=== PATIENT | female | born 1955 | race Caucasian/White ===

== ENCOUNTER 2020-11-08 14:39 | Emergency (ER) | payer SELFPAY ==
[~2020-11-08] VITALS: Ht 157.5 cm; Wt 81.7 kg
--- NOTE | 2020-11-08 15:13 | PHYS DOC ---
Past History Past Medical History: Diabetes, Hypertension Past Surgical History: No Surgical History Alcohol Use: None Adult General Chief Complaint Chief Complaint: SORE THROAT HPI HPI Patient is a 65yo F presenting for sore throat. Onset was ~2-3 days ago. Cites her significant other had similar symptoms that were sam-limiting but hers has not improved. Reports dry scratchy feeling in posterior throat and pain when swallowing. She has had no fever, been tolerating her secretions. Review of Systems Review of Systems Fourteen body systems of review of systems have been reviewed. See HPI for pertinent positives and negative responses, other coy all other systems are negative, non-pertinent or non-contributory Allergies Allergies Allergies Coded Allergies Type Severity Reaction Last Updated Verified No Known Drug Allergies 11/08/20 No Physical Exam Physical Exam General: Appears well, non toxic, and comfortable Skin: Warm, dry. Normal for ethnicity. HEENT: Atraumatic. PERRLA. Rhinorrhea and congestion. Nasal turbinates boggy b/l. Moist mucous membranes. Uvula midline. Maintaining secretions. No phonation changes. Engorged tonsils bilaterally 4+ without obvious exudate or fluctuance concerning for [employer] Neck: Trachea midline. Normal ROM. No stridor. Anterior cervical lymphadenopathy Lt>Rt with firmness appreciated under left submandibular area Respiratory: Normal WOB. CTAB w/o w/r/r. No tachypnea. Cardiovascular: Regular rate and rhythm. Normal peripheral perfusion. Abdomen: Soft. Non tender. No distension. Back: Normal ROM. Musculoskeletal: No swelling or deformity. Neuro: Alert and oriented x 4. MAEE. Lymph: No cervical LAD. Psych: Anxious affect and mood. Current Patient Data Vital Signs Vital Signs Date Time Temp Pulse Resp B/P (MAP) Pulse Ox O2 Delivery O2 Flow Rate FiO2 11/08/20 14:52 98.2 95 18 152/78 (102) 96 Room Air Lab Results Current Medications Medications (Trade) Dose Ordered Sig/Sujata Route PRN Reason Start Time Stop Time Status Last Admin Dose Admin Iohexol (Omnipaque 300 Mg/ml) 75 ml 1X ONCE IV 11/08/20 15:15 11/08/20 15:16 DC 11/08/20 15:23 Clindamycin HCl (Cleocin) 450 mg 1X ONCE PO 11/08/20 15:30 11/08/20 15:31 DC 11/08/20 15:31 Dexamethasone Sodium Phosphate (Decadron) 10 mg 1X ONCE PO 11/08/20 15:30 11/08/20 15:31 DC 11/08/20 15:31 EKG EKG [] Radiology/Procedures Radiology/Procedures Examination: CT soft tissue neck with IV contrast HISTORY: History of left neck swelling, swollen tonsils COMPARISON: None available Technique: Axial CT images of the soft tissue neck were performed with IV contrast. Coronal and sagittal reformats performed. Exposure: One or more of the following individualized dose reduction techniques were utilized for this examination: 1. Automated exposure control 2. Adjustment of the mA and/or kV according to patient size 3. Use of iterative reconstruction technique FINDINGS: The visualized intracranial portion grossly appears unremarkable. The visualized parotid glands, masticators spaces grossly appears unremarkable. The visualized thyroid gland grossly appears unremarkable. The visualized vallecula grossly appears unremarkable. Moderate enlarged bilateral tonsils causing moderate to narrowing of the upper airway, best visualized on series 3 image 24. Few enlarged bilateral cervical lymph nodes identified with the largest measuring 1.6 cm on the left cervical level II region. Partially visualized small mediastinal lymph nodes. Mild apical lung emphysematous changes. Minimal apical lung atelectasis. Mild degenerative changes cervical spine. IMPRESSION: 1. Moderate enlarged bilateral tonsils causing moderate to narrowing of the upper airway probably tonsillitis. Correlate clinically. 2. Few enlarged bilateral cervical lymph nodes identified with the largest measuring 1.6 cm on the left cervical level II region, likely reactive lymphadenopathy. Electronically signed by: Hunter Calderón MD (11/08/2020 3:39 PM) [id number] Heart Score C/O Chest Pain: No HEART Score for Chest Pain: HEART Score for Chest Pain Response (Comments) Value History Slighlty/Non-Suspicious 0 ECG Normal 0 Age > 65 2 Risk Factors >3 Risk Factors or Hx CAD 2 Troponin < Normal Limit 0 Total 4 Risk Factors: Risk Factors: DM, Current or recent (<one month) smoker, HTN, HLP, family history of CAD, obesity. Risk Scores: Risk Factors: DM, Current or recent (<one month) smoker, HTN, HLP, family history of CAD, obesity. Course & Med Decision Making Course & Med Decision Making Hemodynamically stable patient with HPI and PE concerning for tonsillitis vs [employer] vs other oropharyngeal infection. CT consistent with tonsillitis without other concerning abnormality PO Dex and Clinda started. Patient has good access to PCP and can be seen by end of week for repeat evaluation. I discussed this might be an acute presentation of something such as FE[employer]ER so close follow-up is vital Strict return precautions discussed with good understanding, all questions addressed prior to departure with RX Clinda Candy Disclaimer Candy Disclaimer This electronic medical record was generated, in whole or in part, using a voice recognition dictation system. Departure Departure: Impression: Primary Impression: Acute tonsillitis Disposition: HOME / SELF CARE / HOMELESS Condition: STABLE Referrals: HERIBERTO MEDINA (PCP) Patient Instructions: Sore Throat Additional Instructions: Your child was seen for a sore throat. There is concern for active infection and so, you were given a dose of oral steroids which should last for 3 days and also given antibiotics while in ER. You were also given a prescription for set antibiotics to take, please take these as scheduled to completion. Take ibuprofen (Motrin/Advil) every 6 hours as needed for pain/fever. Push fluid intake. See your doctor if your symptoms worsen or fail to improve in the next 3 to 4 days. Return to the Urgent Care or Emergency Room if you have worsening symptoms, difficulty swallowing, signs of dehydration (poor urine output, dry mouth), a fever > 102, or if you have any other concerns Scripts Clindamycin Hcl (CLINDAMYCIN HCL) 300 Mg Capsule 1 CAP PO TID for TONSILLITIS for 10 Days, #30 CAP Prov: LINO ROBLEDO DO 11/08/20 LINO ROBLEDO DO Nov 08, 2020 15:13
[2020-11-08] MEDS ORDERED: IOHEXOL 300 MG/ML 75 ML VIAL. IV ONE (15:15)
[2020-11-08] MEDS ORDERED: CLINDAMYCIN HCL 150 MG CAPSULE PO ONE (15:30)
[2020-11-08] MEDS ORDERED: DEXAMETHASONE SOD PHOS 10 MG/ML VIAL. PO ONE (15:30)
--- NOTE | 2020-11-08 15:41 | RAD ---
Examination: CT soft tissue neck with IV contrast HISTORY: History of left neck swelling, swollen tonsils COMPARISON: None available Technique: Axial CT images of the soft tissue neck were performed with IV contrast. Coronal and sagit rachel reformats performed. Exposure: One or more of the following individualized dose reduction techniques were utilized for th is examination: 1. Automated exposure control 2. Adjustment of the mA and/or kV according to patien t size 3. Use of iterative reconstruction technique FINDINGS: The visualized intracranial portion grossly appears unremarkable. The visualized parotid glands, mast icators spaces grossly appears unremarkable. The visualized thyroid gland grossly appears unremarkabl e. The visualized vallecula grossly appears unremarkable. Moderate enlarged bilateral tonsils causing moderate to narrowing of the upper airway, best visualized on series 3 image 24. Few enlarged bilate ral cervical lymph nodes identified with the largest measuring 1.6 cm on the left cervical level II r egion. Partially visualized small mediastinal lymph nodes. Mild apical lung emphysematous changes. Mi nimal apical lung atelectasis. Mild degenerative changes cervical spine. IMPRESSION: 1. Moderate enlarged bilateral tonsils causing moderate to narrowing of the upper airway probably to nsillitis. Correlate clinically. 2. Few enlarged bilateral cervical lymph nodes identified with the largest measuring 1.6 cm on the l eft cervical level II region, likely reactive lymphadenopathy. Electronically signed by: Hunter Calderón MD (11/08/2020 3:39 PM) [id number]
[2020-11-08] MEDS ORDERED: CLIN300C9 PO (16:00)
[2020-11-08 16:05] VITALS: BP 147/71
== END 2020-11-08 16:13 | disposition home or self-care (01) ==
LOC: ER 14:39
DX: J02.9 Acute pharyngitis, unspecified (principal); E11.9 Type 2 diabetes mellitus without complications; I10 Essential (primary) hypertension
CPT/HCPCS: 70491; 99285; J1100; Q9967; 99284-25

== ENCOUNTER → 2021-10-07 | Outpatient (CLI) | payer OTHER ==
[~2021-10-07] MED LIST: CLIN-95 PO
--- NOTE | 2021-10-07 14:09 | RAD ---
EXAM: XR LUMBAR SPINE 2-3V, XR CHEST 2V 10/07/2021 9:35 AM CLINICAL INDICATION: Shortness of air and chronic lower back pain COMPARISON: None TECHNIQUE: PA and lateral views of the chest. AP, lateral, and coned-down lateral views of the lumba r spine FINDINGS: Chest: The heart is normal in size. Lungs are well-expanded. There are a few bilateral calcified gran ulomas. No consolidation, pleural effusion, or pneumothorax. No acute osseous abnormality. Lumbar spine: There are 5 nonrib-bearing lumbar vertebral bodies. No acute fracture. Alignment is nor mal. There is mild disc space narrowing with endplate sclerosis at L2-L3. Mild disc space narrowing a t L1-L2. Tiny anterior osteophytes at multiple levels. No significant facet arthrosis. IMPRESSION: 1. No acute cardiopulmonary abnormality. 2. Mild lumbar degenerative disc disease, greatest at L2-L3. Electronically signed by: Kierra Maharaj MD (10/07/2021 2:07 PM) [id number]
== END ==
LOC: RAD 09:07
PROVIDERS: ATTEND Anesthesiology Pain Medicine
DX: Z02.1 Encounter for pre-employment examination (principal); M51.36 Other intervertebral disc degeneration, lumbar region; M48.061 Spinal stenosis, lumbar region without neurogenic claudication; M25.78 Osteophyte, vertebrae; J98.4 Other disorders of lung
CPT/HCPCS: 71046; 72100